=== PATIENT | female | born 1955 | race Caucasian/White ===

== ENCOUNTER 2023-09-23 09:24 | Inpatient (IN) | payer MEDICARE, OTHER, SELFPAY ==
[2023-09-22 13:13] VITALS: BMI 28.9
[2023-09-22 13:17] VITALS: BP 144/86
[2023-09-22 13:33] LABS: % Basophils 0.5 % (0-2); % Eosinophils 1.8 % (0-6); % Immature Granulocytes 0.3 % (0-0.5); % Lymphocytes 18.6 % (20.5-51.1); % Monocytes 9.2 % (1.7-9.3); % Neutrophils 69.6 % (42.2-75.2); Absolute Basophils 0.1 10^3/uL (0-0.2); Absolute Eosinophils 0.2 10^3/uL (0-0.7); Absolute Lymphocytes 2.4 10^3/uL (1.2-3.4); Absolute Monocytes 1.2 10^3/uL (0.1-0.6); Absolute Neutrophils 9.1 10^3/uL (1.4-6.5); Hemoglobin 11.3 g/dL (12.0-16.0); Mean Corp Hgb Conc. 33.2 g/dL (33.0-37.0); Mean Corpuscular Hgb 31.7 pg (27.0-31.0); Mean Corpuscular Volume 95.2 fL (81.0-99.0); Mean Platelet Volume 8.3 fL (7.4-10.4); Nucleated Red Blood Cells % 0 %; Platelet Count 420 10^3/uL (130-400); Red Blood Cell Count 3.57 10^6/uL (4.20-5.40); Red Cell Dist. Width 12.1 % (11.5-14.5)
[2023-09-22 13:51] LABS: ALT (SGPT) 25 U/L (0-35); AST (SGOT) 25 U/L (14-36); Albumin 4.1 g/dl (3.5-5.0); Alkaline Phosphatase 75 U/L (38-126); Blood Urea Nitrogen 34 mg/dl (7-17); Calcium 9.7 mg/dl (8.4-10.2); Carbon Dioxide 27 mmol/L (22-30); Chloride 104 mmol/L (98-107); Glucose 95 mg/dl (70-99); Potassium 3.3 mmol/L (3.5-5.1); Sodium 142 mmol/L (135-145); Total Bilirubin 0.5 mg/dl (0.2-1.3); Total Protein 8.1 g/dl (6.3-8.2); eGFR 25.35
[2023-09-22 17:43] VITALS: BP 149/72
[2023-09-22 18:00] VITALS: BP 155/73
--- NOTE | 2023-09-22 18:24 | ED.GENMED ---
History of Present Illness
General
Chief Complaint: Weakness
Time Seen by Provider: 09/22/23 17:39
Travel History
Have you had any contact with someone who has COVID-19?: No
Do you have any symptoms of coronavirus? Fever > 100 degrees, chills, cough, shortness of breath, sore throat, loss of taste or smell, muscle aches, or headache?: No
History of Present Illness
History of Present Illness:
68-year-old female presents to the emergency department for evaluation of fatigue, lethargy, intermittent chills, and urinary frequency ongoing for the past 2 weeks. She saw her primary care physician last week where she had outpatient labs showing
leukocytosis to 13,000 as well as acute kidney injury, creatinine was noted to be 1.7 off a baseline of 0.8. Given the abnormal creatinine the patient's hydrochlorothiazide was discontinued in favor of amlodipine. She states symptoms are
continuing to worsen. She was noted to have positive urinalysis at her primary care physician office but urine culture did not have any significant growth. Patient denies any dysuria or night sweats but she does have frequent shaking chills and
has lost at least 5 pounds over this time. Denies any flank pain or hematuria.
Past History
Past History
ED Past Medical History: Hypercholesterolemia and Hypothyroidism
ED Past Surgical History: Tonsilectomy
Social History
Tobacco: Non-smoker
Alcohol: None
Drug: None
Personal:
Living: with family
Employment: Employed
Review of Systems
Review of Systems
Allergies reviewed?: Yes
All Other Systems: ROS reviewed and negative except as documented in HPI and ROS
Phy Exam
Physical Exam
Physical Exam:
GEN: Well appearing, NAD, WDWN
Eyes: PERRLA, EOMs intact, no scleral icterus
HENT: NCAT, oral mucosa moist, no JVD, no cervical adenopathy.
Lungs: CTAB, no wheezes, rales, rhonchi, normal chest wall excursion
Cardiac: RRR, no M/R/G, no peripheral edema. Radial pulses 2+ bilat
Abdomen: S, NT, ND, NABS, no masses or hepatosplenomegaly
Neuro: AO x 3, no focal deficits to BUE/BLE, normal sensation throughout
MSK: No gross deformity or ecchymosis. No edema. No digital clubbing
Skin: No rashes, petechiae. Normal color, no pallor or jaundice.
Psych: Calm, cooperative, proper hygiene
Course
Orders/Labs/Results
Orders:
Orders
09/22/23 13:25
Complete Blood Count/With Diff Urgent
Comprehensive Metabolic Panel Urgent
Creatine Phosphokinase Urgent
Comment: ADD ON
Magnesium Urgent
Comment: ADD ON
Phosphorus Urgent
Comment: ADD ON
09/22/23 17:56
Add On- LAB Urgent
Tests Added?: CPK, magnesium, phosphorus
09/22/23 17:57
CT Abd/pel Without Iv Or Oral Urgent
Comment:
Reason For Exam: renal failure, eval for obstruction
09/22/23 18:36
Lactic Acid Q4H
Comment: CANCEL 2nd LACTIC ACID IF 1st LACTIC ACID IS LESS THAN 2
Venous Blood Gas Urgent
%Oxygen/Room Air: 98
Blood Culture Q30M
EMIL Source: Blood/Venous
Specimen Description:
Blood Culture Q30M
EMIL Source: Blood/Venous
Specimen Description:
09/22/23 18:54
Urinalysis Reflex To Culture Urgent
Date Specimen was Collected: 09/22/23
Time Specimen was Collected: 18:53
Urine Microscopic Reflex Cult Urgent
Urine Culture Urgent
EMIL Source: U
Specimen Description:
Date Specimen was Collected: 09/22/23
Time Specimen was Collected: 18:53
09/22/23 19:23
CefTRIAXone [Rocephin] 1,000 mg IV NOW STA
09/22/23 19:24
0.9% Sodium Chloride 1000 ml [Nss] 1,000 ml IV BOLUS
09/22/23 21:12
Potassium Chloride [KCl] 40 meq PO NOW STA
09/22/23 22:00
Lactic Acid Q4H
Comment: CANCEL 2nd LACTIC ACID IF 1st LACTIC ACID IS LESS THAN 2
Abnormal Lab Results
09/22/23 09/22/23 09/22/23
13:25 18:36 18:54
WBC 13.0 H 10^3/uL
(4.8-10.8)
RBC 3.57 L 10^6/uL
(4.20-5.40)
Hgb 11.3 L g/dL
(12.0-16.0)
Hct 34.0 L %
(37.0-47.0)
MCH 31.7 H pg
(27.0-31.0)
Plt Count 420 H 10^3/uL
(130-400)
Absolute Neuts (auto) 9.1 H 10^3/uL
(1.4-6.5)
Absolute Monos (auto) 1.2 H 10^3/uL
(0.1-0.6)
Lymphocytes % 18.6 L %
(20.5-51.1)
VBG pO2 52 H mmHg
(30-50)
Potassium 3.3 L mmol/L
(3.5-5.1)
BUN 34 H mg/dl
(7-17)
Creatinine 2.1 H mg/dL
(0.6-1.0)
Lactic Acid 2.4 H mmol/L
(0.7-2.0)
Magnesium 2.4 H mg/dl
(1.6-2.3)
Ur Occult Blood Reflex 2+ A
(Negative)
Leukocyte Esterase Rfl 2+ A
(Negative)
Urine RBC 7-10 A /HPF
(0-2)
Urine WBC (Reflex) 50-60 A /HPF
(0-5)
Urine Bacteria (Reflex) Moderate A
(Negative)
09/22/23 13:25
09/22/23 13:25
Vital Signs
Initial and Last Documented VS:
Initial Vital Signs
Temp Pulse Resp BP Pulse Ox
98.1 F 80 18 144/86 99
09/22/23 13:17 09/22/23 13:17 09/22/23 13:17 09/22/23 13:17 09/22/23 13:17
Last Documented Vital Signs
Temp Pulse Resp BP Pulse Ox
98.1 F 75 13 123/61 99
09/22/23 13:17 09/22/23 20:30 09/22/23 20:30 09/22/23 19:00 09/22/23 20:30
MDM/Problems Addressed
MDM/Problems Addressed:
I suspect that her abnormalities are due to a urinary tract infection given the large bacteriuria and pyuria. She has no fever however does have leukocytosis and lactic acidosis. No evidence for urinary obstruction on CT. Do not see any other
alternative etiology for acute kidney injury as it does not appear to be a clearly prerenal source. Will admit for IV antibiotics and further management
*Critical Care Note
Total Time (30-74mins, 75-104mins- exclusive of procedures): Not Applicable
ED Attending Note
-
Portions of this chart may have been created with voice recognition software.� Occasional wrong word or��sound alike� substitutions may have occurred due to the inherent limitations of voice recognition software.
Discharge Plan
Departure
Patient Disposition: Admit
Date of Disposition: 09/22/23
Time of Disposition: 21:01
Admit to: Med/Surg
Presentation/result/management discussed w/ accepting MD/DO: Hospitalist
Discharge Problem:
Urinary tract infection, Acute kidney injury, Acidosis, lactic
Prescriptions:
No Action
erythromycin 1 GM ointment
1 gm OP TID Qty: 1 0RF
Rx Instructions:
apply three times a day to right eye
Referrals:
Rosa Medrano DO [Family Provider] -
Interventions
Interventions:
*Risk Screen - Suicide Last Done: 09/22/23 13:17
*General Assessment Last Done: 09/22/23 13:17
*Neglect/Abuse Screening Last Done: 09/22/23 13:17
ED- Fall Risk Assessment Last Done: 09/22/23 17:45
ED- Cardiac Assessment Last Done: 09/22/23 17:45
ED- Neurological Assessment Last Done: 09/22/23 17:45
ED- Pulmonary Assessment Last Done: 09/22/23 17:45
Discharge Date and Time
Print Language: MONGOLIAN
[2023-09-22 18:35] LABS: Creatine Phosphokinase 55 U/L (30-135); Magnesium 2.4 mg/dl (1.6-2.3); Phosphorus 3.8 mg/dl (2.5-4.5)
[2023-09-22 19:00] VITALS: BP 123/61
[2023-09-22 19:01] LABS: Venous Blood Gas B.E. -2.4 mmol/L (-4 to +4); Venous Blood Gas HCO3 23.2 mmol/L (22-27); Venous Blood Gas O2 Sat % 85.2 %; Venous Blood Gas pCO2 42 mmHg (35-48); Venous Blood Gas pH 7.35 (7.32-7.43); Venous Blood Gas pO2 52 mmHg (30-50)
[2023-09-22 19:03] LABS: Urine Albumin Negative (Neg - Trace); Urine Bilirubin Negative (Negative); Urine Character Clear (Clear); Urine Color Yellow; Urine Glucose Negative (Negative); Urine Ketone Negative (Negative); Urine Leukocyte 2+ (Negative); Urine Nitrite Negative (Negative); Urine Occult Blood 2+ (Negative); Urine Specific Gravity 1.005 (<1.030); Urine Urobilinogen Negative (Neg - 1+)
[2023-09-22 19:11] LABS: Urine Urothelial Cell 0-2 /LPF (FEW)
[2023-09-22 19:12] LABS: Urine Bacteria Moderate (Negative); Urine White Cell 50-60 /HPF (0-5)
[2023-09-22 19:16] LABS: Lactic Acid 2.4 mmol/L (0.7-2.0)
[2023-09-22] MEDS: ROCEPHIN 1000 MG IV (20:00)
[2023-09-22] MEDS: NSS 1000 IV (20:00)
--- NOTE | 2023-09-22 21:10 | HPS.HSE ---
Family Physician
-
Family Physician: Rosa Medrano
Chief Complaint
-
Chills
History of Present Illness
HPI: 68-year-old female PMH HTN, HLD, Hypothyroidism; p/w fatigue/lethargy, intermittent chills ongoing for ~2 weeks. She denies urinary frequency, dysuria or any urinary symptoms.
She saw her primary care physician the week prior and had outpatient labs showing leukocytosis of 13,000 with RENEE (Creatinine at 1.7 from baseline of 0.8). Her hydrochlorothiazide was discontinued and amlodipine was started for BP control.
Apparently she was noted to have positive urinalysis at her primary care physician office but urine culture did not have any significant growth.
Medical History
Past Medical History
Past Medical History: Reports Other
Additional Past Medical History:
HTN
HLD
Hypothyroidism
Past Surgical History: Reports None
Social History
Tobacco: Non-smoker
Alcohol: Occasional
Personal:
Living: With Family
Family History
Family History: Not pertinent
Allergies / Home Medications
Allergies reflects when Allergies were last updated in [facility].
Home Medications with original date entered in [facility]
Allergy/Medication List:
Allergies
Allergy/AdvReac Type Severity Reaction Status Date / Time
No Known Allergies Allergy Verified 01/23/17 02:29
Home Medications
Lactobac no.2-Bifidobac no.1-S. thermo 112.5 billion cell capsule (Visbiome) 1 cap PO HS 09/22/23
amlodipine 5 mg tablet 5 mg PO DAILY 09/22/23
aspirin 81 mg tablet,delayed release 81 mg PO HS 09/22/23
atorvastatin 40 mg tablet 40 mg PO HS 09/22/23
coenzyme Q10 100 mg capsule (Co Q-10) 100 mg PO DAILY 09/22/23
famotidine 20 mg tablet 20 mg PO HS 09/22/23
levothyroxine 88 mcg tablet 88 mcg PO DAILY 09/22/23
metoprolol succinate 25 mg tablet,extended release 24 hr 25 mg PO HS 09/22/23
omega 2-cpl-czd-fish oil 1,000 mg (120 mg-180 mg) capsule (Fish Oil) 1 cap PO BID 09/22/23
omeprazole 20 mg capsule,delayed release 20 mg PO DAILY 09/22/23
sertraline 50 mg tablet 50 mg PO DAILY 09/22/23
Review of Systems
-
Constitutional: Reports Chills
Abdomen/GI: Reports No Symptoms
: Reports No Symptoms; Denies Dysuria, Frequency or Flank Pain
Physical Exam
Vital Signs
Vital Signs
Temp Pulse Resp BP Pulse Ox
36.7 C 75 13 123/61 99
09/22/23 13:17 09/22/23 20:30 09/22/23 20:30 09/22/23 19:00 09/22/23 20:30
Physical Exam
General: Well Developed, Well Nourished, No Apparent Distress, Comfortable and Conversant
HEENT: NormoCephalic, Moist mucous membranes and Atraumatic
Respiratory: Clear and Non Labored Respirations; No Accessory Resp Muscle Use
Cardiac: S1/S2 and Regular Rhythm; No Murmur or Rub
GI: Soft, Non Tender, Non Distended and Normal Bowel Sounds; No Organomegaly
Rectal: Deferred by Provider
Musculoskeletal: No Clubbing, No Cyanosis and No Edema
Skin: No Rash
Neuro: Awake and Nonfocal/grossly intact
Psych: Calm and Intact Judgment/Insight
Laboratory Results
-
09/22/23 13:25
09/22/23 13:25
Laboratory Results
Lactic Acid 2.4 mmol/L (0.7-2.0) H 09/22/23 18:36
Total Bilirubin 0.5 mg/dl (0.2-1.3) 09/22/23 13:25
AST 25 U/L (14-36) 09/22/23 13:25
ALT 25 U/L (0-35) 09/22/23 13:25
Alkaline Phosphatase 75 U/L (38-126) 09/22/23 13:25
Data Reviewed
-
CT Scan: Report Reviewed by me
Lab Data: Labs Reviewed by me
Impression/Plan
-
HPI: 68-year-old female PMH HTN, HLD, Hypothyroidism; p/w fatigue/lethargy, intermittent chills ongoing for ~2 weeks. She denies urinary frequency, dysuria or any urinary symptoms.
She saw her primary care physician the week prior and had outpatient labs showing leukocytosis of 13,000 with RENEE (Creatinine at 1.7 from baseline of 0.8). Her hydrochlorothiazide was discontinued and amlodipine was started for BP control.
Apparently she was noted to have positive urinalysis at her primary care physician office but urine culture did not have any significant growth.
Patient denies to any fever, but endorses to chills. She denies to any chest pain, shortness of breath, abdominal pain, flank pain, urinary symptoms or bowel symptoms.
She complains of weight loss (initially was intentional) since the beginning of the year. She has lost 21 pounds over the past 3 to 4 months.
She stated that she had outpatient coronary calcium score, and at that time was noted to have pulmonary nodule which was apparently very small. She was seen by [facility], and was told unlikely to be a lung cancer.
Her PCP is aware of her weight loss.
CT AP in ED :
1. No significant acute abnormality identified in the abdomen or pelvis, within the limits of unenhanced CT, as described above. No obstructing urinary calculi or hydronephrosis.
2. Mild diffuse colonic stool burden may reflect constipation.
A/P:
# Chills with leukocytosis, possibly UTI
# Mild lactic acidosis on admission
Lactic acid 2.4, continue maintenance IV fluid, follow lactate in the morning
Follow urine culture, blood culture
CT abdomen pelvis unrevealing
Status post ceftriaxone in ER, continue ceftriaxone
# RENEE, presumed prerenal
Serum creatinine 2.3 from baseline 0.8
Continue maintenance IV fluid with NSS 100 cc/hr
# Hypokalemia
Replace
Check a.m. magnesium level
# Weight loss, initially intentional
Check TSH reflex FT4
Her PCP is aware of her weight loss.
Encouraged to follow-up with PCP if unintentional weight loss persists
# HLD
# Hypothyroidism
Continue prior to admission Synthroid
Check TSH reflex FT4
DVT ppx: HSQ
FC
[2023-09-22] MEDS: KCL 40 MEQ PO (21:29)
[2023-09-22 22:48] LABS: TSH Reflex To Free T4 0.25 uIU/ml (0.47-4.68)
[2023-09-22 23:16] LABS: Free T4 1.53 ng/dl (0.78-2.19)
[2023-09-23] VITALS (10 sets, daily range): BP systolic 97–137; BP diastolic 55–74; BMI 28.8
[2023-09-23] MEDS: NSS 1000 IV (03:08)
[2023-09-23 03:44] LABS: Lactic Acid 0.8 mmol/L (0.7-2.0)
[2023-09-23] MEDS: TOPROL XL PO (03:47)
[2023-09-23] MEDS: LIPITOR PO (03:58)
[2023-09-23] MEDS: ASPIR LOW (ENTERIC COATED) PO (03:58)
[2023-09-23] MEDS: VISBIOME PO (03:58)
[2023-09-23] MEDS: LIPITOR 40 MG PO ×2 (04:03→20:03)
[2023-09-23] MEDS: ASPIR LOW (ENTERIC COATED) 81 MG PO ×2 (04:03→20:03)
[2023-09-23] MEDS: VISBIOME 1 CAP PO ×2 (04:03→20:07)
[2023-09-23 05:28] LABS: % Basophils 0.5 % (0-2); % Immature Granulocytes 0.5 % (0-0.5); % Lymphocytes 16.4 % (20.5-51.1); % Monocytes 9.4 % (1.7-9.3); % Neutrophils 71.2 % (42.2-75.2); Absolute Basophils 0.1 10^3/uL (0-0.2); Absolute Eosinophils 0.2 10^3/uL (0-0.7); Absolute Immature Granulocytes 0.1 10^3/uL (0-0.05); Absolute Lymphocytes 1.8 10^3/uL (1.2-3.4); Absolute Neutrophils 7.9 10^3/uL (1.4-6.5); Hematocrit 30.1 % (37.0-47.0); Mean Corp Hgb Conc. 33.2 g/dL (33.0-37.0); Mean Corpuscular Hgb 31.3 pg (27.0-31.0); Mean Corpuscular Volume 94.1 fL (81.0-99.0); Mean Platelet Volume 8.3 fL (7.4-10.4); Nucleated Red Blood Cells % 0 %; Platelet Count 352 10^3/uL (130-400); Red Cell Dist. Width 12.3 % (11.5-14.5); White Blood Cell Count 11.1 10^3/uL (4.8-10.8)
[2023-09-23 05:55] LABS: Blood Urea Nitrogen 28 mg/dl (7-17); Calcium 9.2 mg/dl (8.4-10.2); Carbon Dioxide 21 mmol/L (22-30); Chloride 116 mmol/L (98-107); Estimated Creatinine Clearance 33 ml/min; Glucose 108 mg/dl (70-99); Magnesium 2.3 mg/dl (1.6-2.3); Potassium 3.8 mmol/L (3.5-5.1); Sodium 146 mmol/L (135-145); eGFR 35.13
[2023-09-23] MEDS: SYNTHROID 88 MCG PO (06:15)
[2023-09-23] MEDS: PROTONIX 40 MG PO (07:55)
[2023-09-23] MEDS: ZOLOFT 50 MG PO (07:55)
[2023-09-23] MEDS: PEPCID 20 MG PO (07:55)
[2023-09-23] MEDS: NORVASC 5 MG PO (07:56)
[2023-09-23] MEDS: HEPARIN 5000 UNITS SC ×2 (07:56→20:05)
--- NOTE | 2023-09-23 09:09 | W.PN.HOSP.TC ---
Today's Communication/Plan
-
Continue IV fluids. Continue IV antibiotics. Follow-up cultures
Assessment / Plan
Assessment / Plan
Physical Exam
General: Acutely ill
HEENT: NormoCephalic, Moist mucous membranes and Atraumatic
Respiratory: Clear and Non Labored Respirations; No Accessory Resp Muscle Use
Cardiac: S1/S2 and Regular Rhythm; No Murmur or Rub
GI: Soft, Suprapubic Tenderness, Non Distended and Normal Bowel Sounds; No Organomegaly
Rectal: Deferred by Provider
Musculoskeletal: No Clubbing, No Cyanosis and No Edema
Skin: No Rash
Neuro: Awake and Nonfocal/grossly intact
Psych: Calm and Intact Judgment/Insight
A/P:
A/P:
# Chills with leukocytosis, possibly UTI
# Mild lactic acidosis on admission
Lactic acid 2.4, continue maintenance IV fluid, follow lactate in the morning
Follow urine culture, blood culture
CT abdomen pelvis unrevealing
Status post ceftriaxone in ER, continue ceftriaxone
WBC 13-->11
# RENEE, presumed prerenal
Serum creatinine 2.3 from baseline 0.8
Continue maintenance IV fluid with NSS 100 cc/hr--> change to 1/2 NS due to hypernatremia @ 100 ml/hr
Cr 2.1-->1.6
#Hypernatremia
Na 146
Monitor on hypotonic fluids
# Hypokalemia
Replaced and today K 3.8
Today magnesium level-->2.3
# Weight loss, initially intentional
Check TSH reflex FT4
Her PCP is aware of her weight loss.
Encouraged to follow-up with PCP if unintentional weight loss persists
# HLD
Continue statins
# Hypothyroidism
Continue prior to admission Synthroid
Check TSH reflex FT4
DVT ppx: HSQ
Full code
Total time spent on today's encounter was 52 minutes which included time spent in counseling the patient/family regarding diagnosis and treatment plan as listed above, goals of care, and symptom management. Case was discussed with nursing staff,
specialists, and care coordinators/case management. All labs and imaging personally reviewed by me. Remainder the time spent in detailed review of previous records, lab data, imaging, and other medical provider documentation.
Anticipated Discharge: > 48 hours
Subjective/Interval History
-
Date of Service: September 23, 2023
Patient still has some urinary frequency and abdominal discomfort. Denies nausea or vomiting. Afebrile today
Objective Data
-
Labs:
Laboratory Results
09/23/23
05:08
WBC 11.1 H
Hgb 10.0 L
Hct 30.1 L
Plt Count 352
Sodium 146 H
Potassium 3.8
Chloride 116 H
Carbon Dioxide 21 L
BUN 28 H
Creatinine 1.6 H
Glucose 108 H
Calcium 9.2
Vital Signs:
Vital Signs
Temp Pulse Resp BP Pulse Ox
98.3 F 60 14 132/69 99
09/22/23 21:05 09/23/23 07:56 09/23/23 07:55 09/23/23 07:56 09/23/23 07:55
[2023-09-23] MEDS: 0.45%NACL 1000 IV ×2 (12:16→23:53)
--- NOTE | 2023-09-23 19:15 | PTCARENOTE ---
Received patient from ED via stretcher. Patient ambulated from stretcher to bed independently. AAOx3, no complaints of pain. Oriented patient to room and placed call spencer within reach.
[2023-09-23] MEDS: STERILE WATER FOR INJECTION 10 ML IV (20:01)
[2023-09-23] MEDS: ROCEPHIN 1000 MG IV (20:01)
[2023-09-23] MEDS: TOPROL XL 25 MG PO (20:03)
[2023-09-24] MEDS: SYNTHROID 88 MCG PO (05:31)
[2023-09-24 07:20] VITALS: BP 130/65
[2023-09-24 07:52] LABS: Blood Urea Nitrogen 22 mg/dl (7-17); Calcium 9.3 mg/dl (8.4-10.2); Carbon Dioxide 19 mmol/L (22-30); Chloride 116 mmol/L (98-107); Estimated Creatinine Clearance 37 ml/min; Glucose 94 mg/dl (70-99); Magnesium 2.1 mg/dl (1.6-2.3); Potassium 4.1 mmol/L (3.5-5.1); Sodium 146 mmol/L (135-145); eGFR 41.24
[2023-09-24 08:08] LABS: % Basophils 0.7 % (0-2); % Eosinophils 2.7 % (0-6); % Immature Granulocytes 0.3 % (0-0.5); % Monocytes 7.7 % (1.7-9.3); % Neutrophils 62.6 % (42.2-75.2); Absolute Basophils 0.1 10^3/uL (0-0.2); Absolute Eosinophils 0.3 10^3/uL (0-0.7); Absolute Lymphocytes 2.4 10^3/uL (1.2-3.4); Absolute Monocytes 0.7 10^3/uL (0.1-0.6); Absolute Neutrophils 5.7 10^3/uL (1.4-6.5); Hematocrit 30.9 % (37.0-47.0); Hemoglobin 10.4 g/dL (12.0-16.0); Mean Corp Hgb Conc. 33.7 g/dL (33.0-37.0); Mean Corpuscular Hgb 31.7 pg (27.0-31.0); Mean Corpuscular Volume 94.2 fL (81.0-99.0); Mean Platelet Volume 8.5 fL (7.4-10.4); Nucleated Red Blood Cells % 0 %; Platelet Count 362 10^3/uL (130-400); Red Blood Cell Count 3.28 10^6/uL (4.20-5.40); Red Cell Dist. Width 12.4 % (11.5-14.5); White Blood Cell Count 9.1 10^3/uL (4.8-10.8)
--- NOTE | 2023-09-24 08:49 | W.PN.HOSP.TC ---
Today's Communication/Plan
-
Continue IV antibiotics and follow-up cultures. IV fluids. Monitor renal function.
Assessment / Plan
Assessment / Plan
Physical Exam
General: Acutely ill
HEENT: NormoCephalic, Moist mucous membranes and Atraumatic
Respiratory: Clear and Non Labored Respirations; No Accessory Resp Muscle Use
Cardiac: S1/S2 and Regular Rhythm; No Murmur or Rub
GI: Soft, Suprapubic Tenderness, Non Distended and Normal Bowel Sounds; No Organomegaly
Rectal: Deferred by Provider
Musculoskeletal: No Clubbing, No Cyanosis and No Edema
Skin: No Rash
Neuro: Awake and Nonfocal/grossly intact
Psych: Calm and Intact Judgment/Insight
A/P:
A/P:
# Chills with leukocytosis, possibly UTI
# Mild lactic acidosis on admission
Lactic acid 2.4, continue maintenance IV fluid, follow lactate in the morning
Follow urine culture, blood culture
CT abdomen pelvis unrevealing
Status post ceftriaxone in ER, continue ceftriaxone
WBC 13-->11-->9.1
# RENEE, presumed prerenal
Serum creatinine 2.3 from baseline 0.8
Continue maintenance IV fluid with NSS 100 cc/hr--> change to 1/2 NS due to hypernatremia @ 100 ml/hr
Cr 2.1-->1.6-->1.4
#Hypernatremia
Na 146
Monitor on hypotonic fluids
# Hypokalemia
Replaced and today K 3.8
Today magnesium level-->2.3
# Weight loss, initially intentional
Check TSH reflex FT4--> 0.25 and 1.53
Her PCP is aware of her weight loss.
Encouraged to follow-up with PCP if unintentional weight loss persists
# HLD
Continue statins
# Hypothyroidism
Continue prior to admission Synthroid
Check TSH reflex FT4
DVT ppx: HSQ
Full code
Anticipated Discharge: 24 - 48 hours
Subjective/Interval History
-
Date of Service: September 24, 2023
Patient continues to feel well overall. No nausea or vomiting. Afebrile
Objective Data
-
Labs:
Laboratory Results
09/24/23
06:51
WBC 9.1
Hgb 10.4 L
Hct 30.9 L
Plt Count 362
Sodium 146 H
Potassium 4.1
Chloride 116 H
Carbon Dioxide 19 L
BUN 22 H
Creatinine 1.4 H
Glucose 94
Calcium 9.3
Vital Signs:
Vital Signs
Temp Pulse Resp BP Pulse Ox
98.3 F 59 16 130/65 97
09/24/23 07:20 09/24/23 07:20 09/24/23 07:20 09/24/23 07:20 09/24/23 07:20
I&O
09/23/23 09/24/23 09/25/23
06:59 06:59 06:59
Intake Total 300 / 300
Balance 300 / 300
[2023-09-24] MEDS: HEPARIN 5000 UNITS SC (09:01)
[2023-09-24] MEDS: ZOLOFT 50 MG PO (09:02)
[2023-09-24] MEDS: PROTONIX 40 MG PO (09:02)
[2023-09-24] MEDS: NORVASC 5 MG PO (09:03)
[2023-09-24] MEDS: 0.45%NACL 1000 IV ×2 (09:05→16:58)
[2023-09-24 15:17] VITALS: BP 109/60
--- NOTE | 2023-09-24 15:38 | CM ---
Bridget Martinez was sleeping, but did arouse briefly when I came into the room. She intends to return home at discharge with no needs anticipated.
Plan: discharge to home with no services.
[2023-09-24] MEDS: SODIUM BICARBONATE 650 MG PO ×2 (16:57→21:16)
[2023-09-24] MEDS: TOPROL XL 25 MG PO (21:15)
[2023-09-24] MEDS: STERILE WATER FOR INJECTION 10 ML IV (21:16)
[2023-09-24] MEDS: LIPITOR 40 MG PO (21:16)
[2023-09-24] MEDS: HEPARIN SC (21:16)
[2023-09-24] MEDS: ASPIR LOW (ENTERIC COATED) 81 MG PO (21:16)
[2023-09-24] MEDS: ROCEPHIN 1000 MG IV (21:16)
[2023-09-24] MEDS: VISBIOME 1 CAP PO (21:17)
[2023-09-24 23:38] VITALS: BP 118/84
[2023-09-25] MEDS: 0.45%NACL 1000 IV (04:07)
[2023-09-25] MEDS: SYNTHROID 88 MCG PO (05:42)
[2023-09-25 07:51] LABS: % Basophils 0.7 % (0-2); % Eosinophils 2.5 % (0-6); % Immature Granulocytes 0.2 % (0-0.5); % Lymphocytes 28.5 % (20.5-51.1); % Neutrophils 61.1 % (42.2-75.2); Absolute Basophils 0.1 10^3/uL (0-0.2); Absolute Eosinophils 0.2 10^3/uL (0-0.7); Absolute Lymphocytes 2.4 10^3/uL (1.2-3.4); Absolute Monocytes 0.6 10^3/uL (0.1-0.6); Absolute Neutrophils 5.2 10^3/uL (1.4-6.5); Hematocrit 32.2 % (37.0-47.0); Hemoglobin 10.9 g/dL (12.0-16.0); Mean Corp Hgb Conc. 33.9 g/dL (33.0-37.0); Mean Corpuscular Hgb 31.4 pg (27.0-31.0); Mean Corpuscular Volume 92.8 fL (81.0-99.0); Mean Platelet Volume 8.2 fL (7.4-10.4); Nucleated Red Blood Cells % 0 %; Platelet Count 360 10^3/uL (130-400); Red Blood Cell Count 3.47 10^6/uL (4.20-5.40); Red Cell Dist. Width 12.5 % (11.5-14.5); White Blood Cell Count 8.5 10^3/uL (4.8-10.8)
[2023-09-25 08:18] LABS: Blood Urea Nitrogen 16 mg/dl (7-17); Calcium 9.4 mg/dl (8.4-10.2); Carbon Dioxide 21 mmol/L (22-30); Chloride 115 mmol/L (98-107); Estimated Creatinine Clearance 40 ml/min; Glucose 96 mg/dl (70-99); Potassium 3.7 mmol/L (3.5-5.1); Sodium 147 mmol/L (135-145); eGFR 45.07
[2023-09-25 08:25] VITALS: BP 133/68
--- NOTE | 2023-09-25 08:31 | W.PN.HOSP.TC ---
Today's Communication/Plan
-
Switch antibiotics to oral. Discharge planning in progress today
Assessment / Plan
Assessment / Plan
Physical Exam
General: No acute distress
HEENT: NormoCephalic, Moist mucous membranes and Atraumatic
Respiratory: Clear and Non Labored Respirations; No Accessory Resp Muscle Use
Cardiac: S1/S2 and Regular Rhythm; No Murmur or Rub
GI: Soft, Suprapubic Tenderness, Non Distended and Normal Bowel Sounds; No Organomegaly
Rectal: Deferred by Provider
Musculoskeletal: No Clubbing, No Cyanosis and No Edema
Skin: No Rash
Neuro: Awake and Nonfocal/grossly intact
Psych: Calm and Intact Judgment/Insight
A/P:
A/P:
# Chills with leukocytosis, possibly UTI
# Mild lactic acidosis on admission
Lactic acid 2.4, continue maintenance IV fluid, follow lactate in the morning. Lactate down to 1
Follow urine culture, blood culture.
CT abdomen pelvis unrevealing
Change IV ceftriaxone to oral cephalexin today
WBC 13-->8.5
Repeat BMP today
Plan to discharge later today
# RENEE, presumed prerenal
Serum creatinine 2.3 from baseline 0.8
Continue maintenance IV fluid with NSS 100 cc/hr--> change to D5W due to hypernatremia @ 85 ml/hr
Cr 2.1-->1.3
#Hypernatremia
Na 147
Monitor on hypotonic fluids
#Metabolic acidosis
On sodium bicarb
Bicarb 21 today
# Hypokalemia
Replaced and today K 3.7
Today magnesium level-->2.3
# Weight loss, initially intentional
Check TSH reflex FT4--> 0.25 and 1.53
Her PCP is aware of her weight loss.
Encouraged to follow-up with PCP if unintentional weight loss persists
# HLD
Continue statins
# Hypothyroidism
Continue prior to admission Synthroid
Check TSH reflex FT4
DVT ppx: HSQ
Full code
Anticipated Discharge: Today
Subjective/Interval History
-
Date of Service: September 25, 2023
Patient feels well today. No new complaints. Afebrile
Objective Data
-
Labs:
Laboratory Results
09/25/23
07:17
WBC 8.5
Hgb 10.9 L
Hct 32.2 L
Plt Count 360
Sodium 147 H
Potassium 3.7
Chloride 115 H
Carbon Dioxide 21 L
BUN 16
Creatinine 1.3 H
Glucose 96
Calcium 9.4
Vital Signs:
Vital Signs
Temp Pulse Resp BP Pulse Ox
97.5 F 64 18 133/68 95
09/25/23 08:25 09/25/23 08:25 09/25/23 08:25 09/25/23 08:25 09/25/23 08:25
I&O
09/24/23 09/25/23 09/26/23
06:59 06:59 06:59
Intake Total 300 / 300 2880 / 2880
Balance 300 / 300 2880 / 2880
[2023-09-25] MEDS: HEPARIN SC (09:28)
[2023-09-25] MEDS: NORVASC 5 MG PO (09:35)
[2023-09-25] MEDS: PEPCID 20 MG PO (09:35)
[2023-09-25] MEDS: ZOLOFT 50 MG PO (09:36)
[2023-09-25] MEDS: SODIUM BICARBONATE 650 MG PO (09:36)
[2023-09-25] MEDS: PROTONIX 40 MG PO (09:36)
--- NOTE | 2023-09-25 11:42 | W.DCSUMMARY ---
Discharge Summary
Discharge Data
Date of Admission: 09/23/23
Date of Discharge: 09/25/23
-
Pending Results: No
Hospital Course
Patient is 68 years old female with history hypertension, hyperlipidemia, hypothyroidism, presented to the hospital with generalized weakness and chills. Upon admission she was noted to have lactic acidosis and acute kidney injury. She was given
IV fluid and empirically started on IV antibiotics. Renal function improved substantially with intravenous fluids. Her creatinine went down from 2.1 to 1.2 with hydration and her GFR went up to 44. Her sodium went up to 147 but after hypotonic
fluids her sodium went down to back to normal 145 upon discharge. She also had some mild metabolic acidosis and she received some oral bicarb and her bicarb went back to normal 23 upon discharge as well. As far as her infection, blood cultures
remain no growth and urine culture only showed 20,000 gram negative variable bacilli and it appears that she had a similar urine culture as outpatient although I do not have that information at hand. We discussed whether to treat or not at this
point given mixed inflammation at the moment and based on her presentation and recurrent symptoms we believe that she would benefit from finishing a short course of antibiotics as outpatient for suspected urinary tract infection. Otherwise, patient
is hemodynamically stable she is back to her baseline and she is eager to go home today. She will be discharged in stable condition today.
Discharge duration: 33 minutes
Discharge Plan
-
Patient Disposition: Home (Routine Discharge)
Discharge Diagnosis/Procedures: Urinary tract infection. Acute kidney injury. Hypernatremia. Hypokalemia.
Diet: Low Cholesterol
Activity: As tolerated
Driving Restrictions: As prior to admission
Blood Work: Please PCP to order CBC, BMP within 1 week. Please PCP to order thyroid function test within 6 weeks.
Referrals:
Rosa Medrano, DO [Family Provider] - in less than 1 week
Prescriptions:
New
cephalexin 250 mg Capsule
250 mg PO BID 5 Days Qty: 10 0RF
Continued
atorvastatin 40 mg tablet
40 mg PO HS
amlodipine 5 mg tablet
5 mg PO DAILY
aspirin 81 mg Tablet,Delayed Release (Dr/Ec)
81 mg PO HS
levothyroxine 88 mcg tablet
88 mcg PO DAILY
famotidine 20 mg tablet
20 mg PO HS
omeprazole 20 mg capsule,delayed release(DR/EC)
20 mg PO DAILY
metoprolol succinate 25 mg tablet extended release 24 hr
25 mg PO HS
sertraline 50 mg tablet
50 mg PO DAILY
coenzyme Q10 [Co Q-10] 100 mg Capsule
100 mg PO DAILY
Visbiome 112.5 billion cell Capsule
1 cap PO HS
omega 2-wer-tiu-fish oil [Fish Oil] 1,000 mg (120 mg-180 mg) Capsule
1 cap PO BID
Discharge Orders:
Discharge Patient (As Directed); Ordered 09/25/23
Ordered By: Jerald Mills
Discharge Date and Time
Discharge Date/Time: 09/25/23 14:45
Print Language: MALTESE
[2023-09-25] MEDS: KEFLEX 250 MG PO (11:52)
[2023-09-25] MEDS: D5W 1000 IV (11:57)
[2023-09-25 13:06] LABS: Blood Urea Nitrogen 15 mg/dl (7-17); Calcium 9.4 mg/dl (8.4-10.2); Carbon Dioxide 23 mmol/L (22-30); Chloride 113 mmol/L (98-107); Estimated Creatinine Clearance 44 ml/min; Glucose 89 mg/dl (70-99); Potassium 3.9 mmol/L (3.5-5.1); Sodium 145 mmol/L (135-145); eGFR 49.61
[2023-09-25 13:47] VITALS: BP 125/50
== END 2023-09-25 14:45 | disposition home or self-care (01) | DRG 683 ==
LOC: 4 EAST ACU 09:24
PROVIDERS: Emergency Medicine; Physician Assistant; ADMITTING PHYSICIAN Internal Medicine; ATTENDING PHYSICIAN Hospitalist; EMERGENCY PHYSICIAN Student in an Organized Health Care Education/Training Program; FAMILY PHYSICIAN Family Medicine
DX: N17.9 Acute kidney failure, unspecified (principal); E87.0 Hyperosmolality and hypernatremia; N39.0 Urinary tract infection, site not specified; E87.20 Acidosis, unspecified; E03.9 Hypothyroidism, unspecified; E78.00 Pure hypercholesterolemia, unspecified; I10 Essential (primary) hypertension; E87.6 Hypokalemia; R91.1 Solitary pulmonary nodule; Z79.890 Hormone replacement therapy
CPT/HCPCS: 74176; 80048; 80053; 81003; 81015; 82550; 82805; 83605; 83735; 84100; 84439; 84443; 85025; 87040; 87086